=== PATIENT | male | born 1980 ===

== ENCOUNTER 2019-04-20 13:56 | Day surgery (SDC) | payer OTHER ==
[2019-04-20] MEDS ORDERED: PROPOFOL 10 MG/ML VIAL IV ONE (13:57)
[2019-04-20] MEDS ORDERED: LIDOCAINE 2% MDV (20MG/ML) 20ML VIAL IV ONE (13:57)
--- NOTE | 2019-04-21 13:20 | Operative Note ---
OPERATION: ESOPHAGOGASTRODUODENOSCOPY with biopsy. PREOPERATIVE DIAGNOSIS: Chronic heartburn. POSTOPERATIVE DIAGNOSIS: Irregular Z line, rule out short-segment Claudio's. PROCEDURE: After informed consent was obtained from the patient, he was placed in the left lateral decubitus position in the endoscopy suite, sedated and monitored by the department of anesthesia. Once sedated, a well-lubricated DPZ433 gastroscope was placed in the posterior oropharynx under direct visualization and passed to the proximal esophagus. The endoscope was advanced through the proximal, mid, and distal esophagus. The GE junction was irregular but no ulcers, erosions, strictures, varices, or mass lesions were seen. The remainder of the esophagus appeared unremarkable. The gastric body, antrum, pylorus, duodenal bulb and sweep were unremarkable the endoscope was then inverted. J-turn views of the fundus and proximal stomach were unremarkable. The endoscope was straightened. Multiple biopsies were obtained from the GE junction. The endoscope removed from the patient with no new findings noted. RECOMMENDATIONS: I would suggest the patient continue his proton pump inhibitor therapy. Further recommendations in regard to the need for surveillance will be based on tissue histology. As always, thank you for allowing me to participate in the healthcare of your patients. MIKE
== END 2019-04-20 14:55 | disposition home or self-care (01) ==
LOC: HOP 13:56
PROVIDERS: ATTEND Internal Medicine Gastroenterology
DX: R12 Heartburn (principal); Z87.19 Personal history of other diseases of the digestive system; K31.89 Other diseases of stomach and duodenum